=== PATIENT | male | born 1960 | race Caucasian/White ===

== ENCOUNTER → 2020-05-03 | Outpatient (CLI) | payer BC ==
[~2020-05-03] VITALS: Ht 175.3 cm; Wt 99.8 kg
[~2020-05-03] MED LIST: ATOR40TA52 PO; DULO1CAP5 PO; LISI-706 PO; MELO1TAB73 PO; NAP500T PO; ZONI50CA3 PO
== END | disposition home or self-care (01) ==
LOC: SUR 13:32 → EDSTATUS 05-07 13:31
PROVIDERS: ATTEND Urology
DX: Z20.828 Contact with and (suspected) exposure to other viral communicable diseases (principal); C61 Malignant neoplasm of prostate